=== PATIENT | female | born 1985 | race Caucasian/White ===

== ENCOUNTER 2018-08-14 18:04 | Emergency (ER) | payer SELFPAY ==
[2018-08-14] MEDS ORDERED: SODIUM CHLORIDE 0.9% 1000ML 1,000 ML IVS ONE (18:18)
[2018-08-14] MEDS ORDERED: MORPHINE SULFATE INJ 10 MG/ML VIAL IV ONE (18:18)
[2018-08-14] MEDS ORDERED: KETOROLAC TROMETHAMINE INJ 30 MG/ML VIAL IV ONE (18:18)
[2018-08-14] MEDS ORDERED: cefTRIAXone SODIUM 1 GM in SODIUM CHL 0.9% 50ML MIN-BAG+ 50 ML IVPB ONE (18:18)
[2018-08-14] MEDS ORDERED: cefTRIAXone SODIUM 1 GM VIAL ONE (18:33)
[2018-08-14] MEDS ORDERED: SODIUM CHL 0.9% 50ML MIN-BAG+ 50 ML IVPB ONE (18:34)
--- NOTE | 2018-08-14 18:41 | RAD ---
EXAM: XR Abdomen, 1 View CLINICAL HISTORY: 33 years old and is Female; hematuria, fever, pain TECHNIQUE: Frontal supine view of the abdomen/pelvis. COMPARISON: No relevant prior studies available. FINDINGS: Limitations: None. Gastrointestinal tract: Moderate colonic stool. No distention. Bones/joints: Unremarkable. Vasculature: Phleboliths in the pelvis present. No other calcification identified. IMPRESSION: No acute findings. Electronically signed by: Cha Mcdonald MD 08/14/2018 6:39 PM CDT
[2018-08-14] MEDS ORDERED: POTASSIUM CHLORIDE ELIXIR 20 MEQ/15 ML UD PO ONE (18:52)
[2018-08-14] MEDS ORDERED: metroNIDAZOLE 500 MG TAB PO ONE (19:10)
[2018-08-14] MEDS ORDERED: AZITHROMYCIN 250 MG TAB PO ONE (19:10)
[2018-08-14] MEDS ORDERED: HYDROcodone 7.5MG/APAP 325MG 1 EA TAB PO ONE (19:56)
--- NOTE | 2018-08-14 20:17 | CT ---
EXAM DESCRIPTION: Abdoment/Pelvis w/o Contrast CLINICAL HISTORY: left flank pain, hematuria, infection COMPARISON: None Available TECHNIQUE: Contiguous axial images of the abdomen and pelvis were obtained followed by reconstruction images. This exam was performed according to our departmental dose-optimization program, which includes automated exposure control, adjustment of the mA and/or kV according to patient size and/or use of iterative reconstruction technique. FINDINGS: The left kidney demonstrates hydronephrosis due to a 2 mm stone within the distal left ureter. Calcifications within the pelvis compatible with phleboliths. The liver, spleen, pancreas and right kidney are within normal limits. The gallbladder is unremarkable by CT criteria. Adrenal glands are within normal limits. Aorta is of normal caliber and tapering. There is no free fluid in the abdomen or pelvis. There is no bowel obstruction. There is no stranding of the mesenteric fat to suggest an inflammatory response. The appendix is within normal limits. There is no pericecal inflammation. IMPRESSION: Left-sided hydronephrosis due to a 2 mm stone within the distal ureter. Electronically signed by: Rodrigo Fitch MD 08/14/2018 8:15 PM CDT
[2018-08-14] MEDS ORDERED: CIPROFLOXACIN 500 MG TAB PO ONE (21:08)
--- NOTE | 2018-08-14 21:53 | ED.PDOC ---
History of Present Illness - General Chief Complaint: Problem Stated Complaint: blood in urine, fever Time Seen by Provider: 08/14/18 18:15 Source: patient Exam Limitations: no limitations - History of Present Illness Initial Comments: the patient a 33-year-old female presenting to the emergency room secondary to left flank pain starting abruptly approximately 4 days ago followed by the development of fever 2 days ago becoming much more severe today. Fever peaked at around 103. The patient was significantly tachycardic upon arrival and obviously hurting. The patient does have a history of bipolar disorder and has been off of her medications. She does have a history of drug abuse. No history of any renal issues in the past according to her. She noticed that she started urinating some blood approximately 3 days ago. No significant vaginal discharge according to her. Timing/Duration: other - 4 days Severity: severe Improving Factors: nothing Worsening Factors: nothing Associated Symptoms: diaphoresis, fever/chills, loss of appetite, malaise, weakness Allergies/Adverse Reactions: Allergies Latex Allergy (Intermediate, Verified 08/14/18 18:41) Review of Systems - Review of Systems Constitutional: States: chills, diaphoresis, fever, malaise EENTM: States: no symptoms reported Respiratory: States: no symptoms reported Cardiology: States: no symptoms reported Gastrointestinal/Abdominal: States: abdominal pain - mild and more on the left Genitourinary: States: see HPI Musculoskeletal: States: no symptoms reported - left flank pain Skin: States: no symptoms reported Neurological: States: no symptoms reported Endocrine: States: no symptoms reported All other Systems: No Change from Baseline Past Medical History (General) - Patient Medical History Hx Asthma: No Hx Pacemaker: No Hx Hypertension: Yes Hx Thyroid Disease: No Hx Diabetes: No - Female History Patient is a Female of Child Bearing Age (10 -59 yrs old): Yes Patient : No Family Medical History - Family History Mother Family History: No Known Physical Exam - Physical Exam General Appearance: Alert, Obvious distress, Ill Appearing Ears, Nose, Throat: hearing grossly normal, normal ENT inspection Neck: full range of motion, supple Respiratory: lungs clear, normal breath sounds, no respiratory distress, no accessory muscle use Cardiovascular/Chest: normal peripheral pulses, no edema, tachycardia - regular Peripheral Pulses: radial,right: 2+, radial,left: 2+ Gastrointestinal/Abdominal: soft, other - mild suprapubic discomfort Rectal Exam: deferred Back Exam: no vertebral tenderness, CVA tenderness (L) Extremity: non-tender, normal inspection, no pedal edema, normal capillary refill 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, alert, normal mood/affect, oriented x 3 Skin Exam: normal color Comments: Vital Signs - 24 hr 08/14/18 08/14/18 08/14/18 18:10 20:00 20:33 Temperature 102.5 F H 100.7 F H Pulse Rate [ 118 H 101 H 101 H left brachial] Respiratory 20 16 16 Rate Blood Pressure 112/59 114/69 121/85 [left brachial] O2 Sat by Pulse 96 95 96 Oximetry 08/14/18 21:41 Temperature Pulse Rate [ 98 H left brachial] Respiratory 16 Rate Blood Pressure 131/58 [left brachial] O2 Sat by Pulse 96 Oximetry Progress - Progress Progress: 08/14/18 21:54 the patient's a 33-year-old female presented to the emergency room secondary to what appears to be pyelonephritis on the left side compounded by an obstructing distal ureteral stone. The patient has been started on ciprofloxacin and Rocephin. The urine has also shown significant trichomoniasis. She did receive 2 g of oral metronidazole for that and she did empirically also receive 1 g of oral azithromycin for coverage of other potential STDs. She has denied significant pelvic pain or vaginal discharge to this point. She has received a liter of IV fluids as well. She has also received IV pain medications. She is being transferred to [facility] for urological evaluation and further care. the patient will likely elect to go by private vehicle for funding purposes. Acceptance at the receiving facility is appreciated. - Results/Orders Results/Orders: 08/14/18 18:26 BLOOD CULTURE Stat 08/14/18 18:45 Urine Culture Stat Laboratory Results - last 24 hr 08/14/18 08/14/18 08/14/18 18:26 18:26 18:26 WBC 9.4 RBC 4.60 Hgb 14.5 Hct 42.7 MCV 92.9 MCH 31.4 H MCHC 33.8 RDW 13.2 Plt Count 171 MPV 7.9 Absolute Neuts (auto) 8.00 H Absolute Lymphs (auto) 0.50 L Absolute Monos (auto) 0.80 Absolute Eos (auto) 0.00 Absolute Basos (auto) 0.10 Neutrophils % 85.3 H Lymphocytes % 5.3 L Monocytes % 8.6 Eosinophils % 0.2 L Basophils % 0.6 Sodium 133 L Potassium 3.2 L Chloride 99 L Carbon Dioxide 23 Anion Gap 14.2 BUN 11 Creatinine 1.00 BUN/Creatinine Ratio 11.0 Random Glucose 143 H Serum Osmolality 268.3 L Lactic Acid 1.9 Calcium 8.5 Total Bilirubin 0.6 AST 19 ALT 15 Alkaline Phosphatase 80 Serum Total Protein 6.8 Albumin 3.5 Globulin 3.3 Albumin/Globulin Ratio 1.1 Urine Color Urine Appearance Urine pH Ur Specific Aylett Urine Protein Urine Glucose (UA) Urine Ketones Urine Blood Urine Nitrite Urine Bilirubin Urine Urobilinogen Ur Leukocyte Esterase Urine RBC Urine WBC Ur Epithelial Cells Urine Bacteria Urine Trichomonas Urine HCG, Qual 08/14/18 08/14/18 18:45 18:45 WBC RBC Hgb Hct MCV MCH MCHC RDW Plt Count MPV Absolute Neuts (auto) Absolute Lymphs (auto) Absolute Monos (auto) Absolute Eos (auto) Absolute Basos (auto) Neutrophils % Lymphocytes % Monocytes % Eosinophils % Basophils % Sodium Potassium Chloride Carbon Dioxide Anion Gap BUN Creatinine BUN/Creatinine Ratio Random Glucose Serum Osmolality Lactic Acid Calcium Total Bilirubin AST ALT Alkaline Phosphatase Serum Total Protein Albumin Globulin Albumin/Globulin Ratio Urine Color Yellow Urine Appearance Cloudy Urine pH 6.0 Ur Specific Aylett 1.020 Urine Protein >=300 H Urine Glucose (UA) Negative Urine Ketones Trace Urine Blood Moderate H Urine Nitrite Positive H Urine Bilirubin Small H Urine Urobilinogen 2.0 H Ur Leukocyte Esterase Small H Urine RBC Tntc H Urine WBC Obscured by rbc's H Ur Epithelial Cells 0 Urine Bacteria 4+ H Urine Trichomonas 20-30 H Urine HCG, Qual Negative CT of abdomen and pelvis shows a 2 mm stone in the left lower ureter causing some proximal ureteral dilation and hydronephrosis. Departure - Departure Clinical Impression: Pyelonephritis, Ureterolithiasis Disposition: Transfer to Hospital Condition: Serious Departure Forms: ED Discharge - Pt. Copy, Patient Portal Self Enrollment Referrals: JUANCHO CHO [Primary Care Provider] - 1-2 Weeks Transfer to Outside Facility - Transfer Information Accepting Provider:: dr morrissey Accepting Facility: [facility] Reason for Transfer: required specialist not available
[2018-08-14 22:04] VITALS: BP 107/66; TEMP 98.8; O2SAT 97
== END 2018-08-14 22:31 | disposition short-term general hospital (02) ==
LOC: ER 18:04
DX: N12 Tubulo-interstitial nephritis, not specified as acute or chronic (principal); N13.2 Hydronephrosis with renal and ureteral calculous obstruction; I10 Essential (primary) hypertension; F31.9 Bipolar disorder, unspecified; Z91.040 Latex allergy status
CPT/HCPCS: 74018; 74176; 80053; 80307; 81001; 81025; 83605; 85025; 87040; 87086; J0696; J1885; J2270; J7030; J7050; Q0144

== ENCOUNTER 2018-12-13 21:31 | Emergency (ER) | payer SELFPAY ==
[2018-12-13 21:50] VITALS: BP 155/94; TEMP 97.9; O2SAT 100
[2018-12-13] MEDS ORDERED: HYDROCOD/APAP 10/325 (ER DISP) # 3 tablets PO ONE (21:57)
--- NOTE | 2018-12-13 22:00 | ED.PDOC ---
History of Present Illness - General Chief Complaint: Dental/Mouth Stated Complaint: nerve expose to molars Time Seen by Provider: 12/13/18 21:57 Source: patient Exam Limitations: no limitations - History of Present Illness Initial Comments: SHE IS HERE WITH A TOOTH ACHE, WAS SEEN BY A DENTIST YESTERDAY AND STARTED ON AMOXIL AND IBUPROFEN. SHE HAS A LARGE CAVITY ON THE LEFT UPPER SECOND MOLAR AND ADVIL IS NOT HELPING. Timing/Duration: intermittent EENT Location: mouth, dental Prearrival Treatment: prescription meds Improving Factors: nothing Worsening Factors: nothing Associated Symptoms: denies symptoms Allergies/Adverse Reactions: Allergies Latex Allergy (Intermediate, Verified 08/14/18 18:41) Home Medications: Ambulatory Orders Acetaminophen W/ Codeine [Tylenol W/ CODEINE #3] 1 ea PO Q6HRS #15 12/13/18 Amoxicillin 500 mg PO Q8HR 12/13/18 Amphetamine-Dextroamphetamine [Adderall] 25 mg PO BID 12/13/18 Ibuprofen 800 mg PO Q6HR PRN 12/13/18 Review of Systems - Review of Systems Constitutional: States: no symptoms reported EENTM: States: no symptoms reported, mouth pain Respiratory: States: no symptoms reported Cardiology: States: no symptoms reported Gastrointestinal/Abdominal: States: no symptoms reported Genitourinary: States: no symptoms reported Musculoskeletal: States: no symptoms reported Skin: States: no symptoms reported Neurological: States: no symptoms reported Past Medical History (General) - Patient Medical History Hx Seizures: No Hx Stroke: No Hx Dementia: No Hx Asthma: No Hx of COPD: No Hx Cardiac Disorders: No Hx Congestive Heart Failure: No Hx Pacemaker: No Hx Hypertension: No Hx Thyroid Disease: No Hx Diabetes: No Hx Gastroesophageal Reflux: No Hx Renal Disease: Yes - Hx of kidney stones Hx Cancer: No Hx Hepatitis C: No Surgical History: other - Vaccination History Hx Tetanus, Diphtheria Vaccination: Yes - 2016 Hx Influenza Vaccination: No Hx Pneumococcal Vaccination: No - Social History Hx Tobacco Use: Yes Hx Alcohol Use: Yes - occasional - Female History Patient : No Family Medical History - Family History Mother Family History: No Known Physical Exam - Physical Exam General Appearance: Alert, Other - MODERATE DISTRESS Eye Exam: bilateral normal Nasal Exam: normal inspection Throat Exam: normal mouth inspection, pharynx normal, dental tenderness, other - LARGE CAVITY ON THE LEFT UPPER SECOND MOLAR Neck: non-tender Cardiovascular/Respiratory: regular rate, rhythm, normal peripheral pulses, no JVD Abdominal Exam: non-tender, no organomegaly 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 Copy, Patient Portal Self Enrollment Instructions: DI for Dental Pain Diet: bland diet Referrals: JUANCHO CHO [Primary Care Provider] - 1-2 Weeks Prescriptions: Acetaminophen W/ Codeine [Tylenol W/ CODEINE #3] 1 ea PO Q6HRS #15 Home Medications: Ambulatory Orders Acetaminophen W/ Codeine [Tylenol W/ CODEINE #3] 1 ea PO Q6HRS #15 12/13/18 Amoxicillin 500 mg PO Q8HR 12/13/18 Amphetamine-Dextroamphetamine [Adderall] 25 mg PO BID 12/13/18 Ibuprofen 800 mg PO Q6HR PRN 12/13/18 Additional Instructions: FOLLOW UP WITH YOUR DENTIST ONE WEEK
[2018-12-13] MEDS: HYDROCOD/APAP 10/325 (ER DISP) # 3 tablets PO ONE (22:09)
== END 2018-12-13 22:16 | disposition home or self-care (01) ==
LOC: ER 21:31
DX: K02.9 Dental caries, unspecified (principal); Z87.891 Personal history of nicotine dependence; Z91.040 Latex allergy status

== ENCOUNTER 2019-01-01 01:04 | Emergency (ER) | payer OTHER ==
[2019-01-01 01:25] VITALS: TEMP 97.9
--- NOTE | 2019-01-01 01:53 | RAD ---
EXAM DESCRIPTION: Foot,Left 3 Views CLINICAL HISTORY: 33 years Female trauma at work with lateral pain COMPARISON: None TECHNIQUE: Three images of the left foot were obtained. FINDINGS: No fracture seen. Normal bony mineralization. No erosive or lytic lesions seen. No radiopaque foreign body seen. IMPRESSION: No fracture or dislocation noted. Electronically signed by: Mary Huggins MD 01/01/2019 1:51 AM CDT
--- NOTE | 2019-01-01 01:54 | RAD ---
EXAM DESCRIPTION: Tibia/Fibula,Left CLINICAL HISTORY: 33 years Female trauma at work with lateral pain COMPARISON: None TECHNIQUE: Two images of the left tibia and fibula were obtained. FINDINGS: No fracture seen. Normal bony mineralization. No erosive or lytic lesions seen. IMPRESSION: No fracture or dislocation seen. Electronically signed by: Mary Huggins MD 01/01/2019 1:52 AM CDT
--- NOTE | 2019-01-01 02:13 | ED.PDOC ---
History of Present Illness - General Chief Complaint: Lower Extremity Injury Stated Complaint: left foot/ankle pain after ran over with pallet Time Seen by Provider: 01/01/19 01:06 Source: patient Exam Limitations: no limitations - History of Present Illness Initial Comments: the patient is a 33-year-old female presenting to the emergency room after having had a pallet jam fall on the lateral aspect of her left foot. This occurred just prior to arrival at work at [employer]. No other injury. The side of the foot is somewhat swollen and does have an abrasion. She is reporting some mild discomfort about a third of the way up the fibula as well. She is neurovascularly intact. No bony deformity. No other injury. Timing/Duration: momentarily Severity: moderate Improving Factors: immobilization Worsening Factors: movement Associated Symptoms: denies symptoms Allergies/Adverse Reactions: Allergies Latex Allergy (Intermediate, Verified 01/01/19 01:22) Home Medications: Ambulatory Orders Amphetamine-Dextroamphetamine [Adderall] 20 mg PO BID 12/13/18 Review of Systems - Review of Systems Constitutional: States: no symptoms reported EENTM: States: no symptoms reported Respiratory: States: no symptoms reported Cardiology: States: no symptoms reported Gastrointestinal/Abdominal: States: no symptoms reported Genitourinary: States: no symptoms reported Musculoskeletal: States: see HPI Skin: States: see HPI Neurological: States: no symptoms reported Endocrine: States: no symptoms reported All other Systems: No Change from Baseline Past Medical History (General) - Patient Medical History Hx Seizures: No Hx Stroke: No Hx Dementia: No Hx Asthma: No Hx of COPD: No Hx Cardiac Disorders: No Hx Congestive Heart Failure: No Hx Pacemaker: No Hx Hypertension: No Hx Thyroid Disease: No Hx Diabetes: No Hx Gastroesophageal Reflux: No Hx Renal Disease: Yes - Hx of kidney stones having to have stent placement Hx Cancer: No Hx of HIV: No Hx Hepatitis C: No Hx MRSA: No Surgical History: other - Vaccination History Hx Tetanus, Diphtheria Vaccination: Yes - 2016 Hx Influenza Vaccination: No Hx Pneumococcal Vaccination: No - Social History Hx Tobacco Use: Yes Cigarettes Packs Per Day: 1 Hx Alcohol Use: Yes - occasional - Female History Patient : No Family Medical History - Family History Mother Family History: No Known Physical Exam - Physical Exam General Appearance: Alert, Comfortable, No apparent distress Eye Exam: bilateral normal Ears, Nose, Throat: hearing grossly normal Neck: full range of motion Respiratory: no respiratory distress, no accessory muscle use Cardiovascular/Chest: normal peripheral pulses, no edema Peripheral Pulses: dorsalis pedis,right: 2+, dorsalis pedis,left: 2+, posterior tibialis,right: 2+, posterior tibialis,left: 2+ Rectal Exam: deferred Back Exam: normal inspection Extremity: normal range of motion, no calf tenderness, normal capillary refill, other - ee history of present illness. Normal active and passive range of motion. Strength is preserved. Tenderness to palpation over the lateral dorsal left foot. While swelling. Mild abrasion. 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 She will have some bruising over the area along with the abrasion. X-ray of the left foot and left tib-fib show no evidence of any fracture or dislocation. She can wrap the area for discomfort. Motrin can be used for discomfort. ER warnings were given for any worsening. Departure - Departure Clinical Impression: Sprain of foot, left Qualifiers: Encounter type: initial encounter Qualified Code(s): S93.602A - Unspecified sprain of left foot, initial encounter Disposition: Discharge to Home or Self Care Condition: Fair Departure Forms: ED Discharge - Pt. Copy, Patient Portal Self Enrollment Diet: regular diet Activity: increase activity as tolerated Referrals: JUANCHO CHO [Primary Care Provider] - 1-2 Weeks Home Medications: Ambulatory Orders Amphetamine-Dextroamphetamine [Adderall] 20 mg PO BID 12/13/18 Additional Instructions: the patient is a 33-year-old female presenting to emergency room after blunt trauma to the left foot, getting what is most likely a midfoot strain. She will have some bruising over the area along with the abrasion. X-ray of the left foot and left tib-fib show no evidence of any fracture or dislocation. She can wrap the area for discomfort. Motrin can be used for discomfort. ER warnings were given for any worsening.
[2019-01-01 02:24] VITALS: BP 143/97; O2SAT 97
== END 2019-01-01 02:44 | disposition home or self-care (01) ==
LOC: ER 01:04
DX: S93.602A Unspecified sprain of left foot, initial encounter (principal); S90.812A Abrasion, left foot, initial encounter; W20.8XXA Other cause of strike by thrown, projected or falling object, initial encounter; Y99.0 Civilian activity done for income or pay; Y92.69 Other specified industrial and construction area as the place of occurrence of the external cause; Z91.040 Latex allergy status